=== PATIENT | female | born 1990 | race Caucasian/White ===

== ENCOUNTER 2017-03-06 09:41 | Emergency (ER) | payer OTHER ==
[2017-03-06 09:50] VITALS: BMI 19.8
--- NOTE | 2017-03-06 10:18 | PDOC ---
History of Present Illness - General Chief Complaint: Vaginal Bleeding Stated Complaint: BLEEDING (7 WKS ) Time Seen by Provider: 03/06/17 09:57 History Source: Patient Exam Limitations: No Limitations - History of Present Illness Travel History: No Initial Comments: 03/06/17 10:09 Patient here with complaints of brown spotting/vaginal bleeding started this morning. States noted when she woke up to use the bathroom this morning had some brownish discoloration vaginally . Has some mild back cramping last night but no changes in exercise or activity, no recent trauma. LMP was 01/28 and since then has had an uncomplicated course. Has had no care as her insurance initiates April 04. Dr. Shrestha will be her ADMINISTRATIVE AND PROGRAM SPECIALIST doctor. 3 para 1 , daughter born 2011. Had a miscarriage that initiated in same type of symptoms in 2016. This was a planned . Denies fever, nausea vomiting diarrhea or constipation, no history of vaginal drainage other than the brown discharge this morning, without clots or gelatinous product. Dysuria few days previous with some frequency and small amount Timing/Duration: reports: intermittent Quality: reports: mild Abdominal Pain Onset Location: reports: generalized abdomen Pain Radiation: reports: no radiation Activities at Onset: reports: none Past History - Travel Traveled outside of the country in the last 30 days: No Close contact w/someone who was outside of country & ill: No - Past Medical History Allergies/Adverse Reactions: Allergies Allergy/AdvReac Type Severity Reaction Status Date / Time No Known Drug Allergies Allergy Verified 03/06/17 09:46 Home Medications: Ambulatory Orders Pnv with Ca,No.72/Iron/FA [ Plus Tablet] 1 each PO DAILY #30 tablet 01/18 Anemia: No Asthma: No Cancer: No Cardiac Disorders: No CVA: No COPD: No CHF: No Dementia: No Diabetes: No GI Disorders: No Disorders: No HTN: No Hypercholesterolemia: No Liver Disease: No Seizures: No Thyroid Disease: No - Reproductive History (#): 2 Para: 1 Therapeutic (s) & number: No Spontaneous : 0 - Immunization History Immunization Up to Date: Yes - Psycho/Social/Smoking Cessation Hx Anxiety: No Suicidal Ideation: No Smoking Status: No Smoking History: Never smoked Have you smoked in the past 12 months: No Number of Cigarettes Smoked Daily: 0 Hx Alcohol Use: Yes (RARELY) Drug/Substance Use Hx: No Substance Use Type: None Hx Substance Use Treatment: No Abd/GI Specific PMHX - Complaint Specific PMHX Colitis: No Diverticulitis: No Review of Systems - Review of Systems Able to Perform ROS?: Yes Is the patient limited Indonesian proficient: Yes Constitutional: Yes: Symptoms Reported, See HPI, Malaise. No: Fever HEENTM: Yes: See HPI. No: Symptoms Reported Respiratory: Yes: See HPI. No: Symptoms reported, Cough ABD/GI: Yes: Symptoms Reported, See HPI, Nausea. No: Constipated, Diarrhea, Abdominal cramping : Yes: See HPI, Frequency. No: Symptoms Reported, Flank Pain Musculoskeletal: No: Symptoms Reported Integumentary: Yes: See HPI. No: Symptoms Reported Neurological: Yes: See HPI. No: Symptoms reported, Headache All Other Systems: Reviewed and Negative *Physical Exam - Vital Signs Last Vital Signs Temp Pulse Resp BP Pulse Ox 98.4 F 111 H 18 126/77 100 03/06/17 09:46 03/06/17 09:46 03/06/17 09:46 03/06/17 09:46 03/06/17 09:46 - Physical Exam General Appearance: Yes: Nourished, Appropriately Dressed. No: Apparent Distress HEENT: positive: SIMI, Normal ENT Inspection, TMs Normal, Pharynx Normal Neck: positive: Supple. negative: Tender, Lymphadenopathy (R), Lymphadenopathy (L) Respiratory/Chest: positive: Lungs Clear, Normal Breath Sounds Female Pelvic Exam: positive: normal external exam, cervical os closed, other ( noted blood in vault, but darkish color, no clots no redness tissue noted) Gastrointestinal/Abdominal: positive: Normal Bowel Sounds, Tender (suprapubic tenderness, but no rebound or guarding), Soft. negative: Rebound, Tenderness Musculoskeletal: positive: Normal Inspection. negative: CVA Tenderness Extremity: positive: Normal Capillary Refill, Normal Inspection, Pelvis Stable Integumentary: positive: Normal Color, Dry, Warm, Pale Neurologic: positive: plate washer II-XII NML intact, Fully Oriented, Alert, Normal Mood/ Affect, Normal Response, Motor Strength 5/5 ED Treatment Course - LABORATORY CBC & Chemistry Diagram: 03/06/17 10:50 - RADIOLOGY Radiology Studies Ordered: Category Date Time Status TRANSVAGINAL US PREG [US] Stat Ultrasound 03/06/17 10:08 Ordered Progress Note - Progress Note Progress Note: Vaginal bleed with , will check labs, and ultrasound Medical Decision Making - Medical Decision Making 03/06/17 13:57 Do sound returns with intrauterine of 2 viable fetus at 5-6 weeks per measurement. Beta hCG 39,000 patient given results, will follow-up with RESOURCE ECONOMIST and continue care to return for worsened symptoms, cramping, worsened bleeding *DC/Admit/Observation/Transfer Diagnosis at time of Disposition: Vaginal bleeding in Qualifiers: Trimester: first trimester Qualified Code(s): O46.91 - Antepartum hemorrhage, unspecified, first trimester - Discharge Dispostion Disposition: HOME Condition at time of disposition: Stable Admit: No - Referrals Referrals: Rufino Guardado MD [Primary Care Provider] - Sean Shrestha MD [Staff Physician] - - Patient Instructions Printed Discharge Instructions: DI for Vaginal Bleeding During Additional Instructions: Rest, drink lots of fluids: Teas, water, soups No heavy lifting, strenuous activity until symptoms resolved Call for appointment with ADMINISTRATIVE AND PROGRAM SPECIALIST as care needs start soon as possible No sexual activity until cleared by RESOURCE ECONOMIST Lots of handwashing and good hygiene Tylenol for fever and pain Followup with private physician in one to 2 days Return to emergency department for worsened symptoms, bleeding, cramping's, fevers, dehydration - Post Discharge Activity Work/School Note: Back to Work
[2017-03-06 11:08] LABS: BASOPHIL 0.6 % (0-2.0); EOSINOPHIL 0.9 % (0-4.5); MCH 26.4 pg (25.7-33.7); MCHC 33.1 g/dl (32.0-36.0); MEAN CELL VOLUME 79.7 fl (80-96); MEAN PLT VOLUME 8.4 fl (7.5-11.1); NEUTROPHILS 63.4 % (42.8-82.8); PLATELET COUNT 288 K/MM3 (134-434); RDW 13.6 % (11.6-15.6); WHITE BLOOD COUNT 8.3 K/mm3 (4.0-10.0)
--- NOTE | 2017-03-06 11:10 | PDOC ---
*Physical Exam - Vital Signs Last Vital Signs Temp Pulse Resp BP Pulse Ox 98.4 F 111 H 18 126/77 100 03/06/17 09:46 03/06/17 09:46 03/06/17 09:46 03/06/17 09:46 03/06/17 09:46 ED Treatment Course - LABORATORY CBC & Chemistry Diagram: 03/06/17 10:50 Medical Decision Making - Medical Decision Making 03/06/17 11:09 Patient seen and evaluated with the nurse practitioner. I agree with the overall evaluation, assessment, and management with the following summary of visit: 27-year-old female with LMP 01/28 presents with vaginal bleeding. Threatened AB versus rule out ectopic. CBC, Rh, hCG, ultrasound. *DC/Admit/Observation/Transfer Diagnosis at time of Disposition: Vaginal bleeding in Qualifiers: Trimester: first trimester Qualified Code(s): O46.91 - Antepartum hemorrhage, unspecified, first trimester - Discharge Dispostion Disposition: HOME - Prescriptions Prescriptions: Pnv with Ca,No.72/Iron/FA [ Plus Tablet] 1 each PO DAILY #30 tablet - Referrals Referrals: Rufino Guardado MD [Primary Care Provider] - Sean Shrestha MD [Staff Physician] - - Patient Instructions Printed Discharge Instructions: DI for Vaginal Bleeding During Additional Instructions: Rest, drink lots of fluids: Teas, water, soups No heavy lifting, strenuous activity until symptoms resolved Call for appointment with SUPERVISOR BOARDING as care needs start soon as possible No sexual activity until cleared by RN RESIDENTIAL Lots of handwashing and good hygiene Tylenol for fever and pain Followup with private physician in one to 2 days Return to emergency department for worsened symptoms, bleeding, cramping's, fevers, dehydration - Post Discharge Activity Work/School Note: Back to Work
[2017-03-06 11:20] LABS: URINE APPEARANCE CLEAR; URINE BILIRUBIN NEGATIVE (NEGATIVE); URINE COLOR LTYELLOW; URINE GLUCOSE (UA) NEGATIVE (NEGATIVE); URINE KETONE TRACE (NEGATIVE); URINE LEUK ESTERASE NEGATIVE (NEGATIVE); URINE NITRITE NEGATIVE (NEGATIVE); URINE PROTEIN NEGATIVE (NEGATIVE); URINE UROBILINOGEN NEGATIVE E.U./dl (0.2-1.0)
[2017-03-06 11:25] LABS: URINE BLOOD 2+ (NEGATIVE)
[2017-03-06 11:27] LABS: URINE MUCUS RARE; URINE RBC 1 /hpf (0-3); URINE WBC 3 /hpf (3-5)
[2017-03-06 11:51] LABS: INR 1.12 (0.82-1.09); PROTHROMBIN TIME (PATIENT) 12.4 SEC (9.98-11.88)
[2017-03-06 13:42] VITALS: BP 101/64; PULSE 89; TEMP 97.9
== END 2017-03-06 14:00 | disposition home or self-care (01) ==
LOC: JER 09:41
DX: O26.891 Other specified pregnancy related conditions, first trimester (principal); O46.91 Antepartum hemorrhage, unspecified, first trimester; Z3A.01 Less than 8 weeks gestation of pregnancy
CPT/HCPCS: 36415; 76817-TC; 81003; 81015; 84702; 84703; 85025; 85610; 86850; 86900; 86901; 99283-25

== ENCOUNTER 2017-03-10 14:31 | Emergency (ER) | payer OTHER ==
[2017-03-10 14:38] VITALS: BP 127/78; PULSE 97; TEMP 98.5; BMI 19.8
[2017-03-10] MEDS ORDERED: SODIUM CHLORIDE FOR INHALATION 3 ML VIAL.NEB IH ONE (14:49)
[2017-03-10] MEDS ORDERED: diphenhydrAMINE HCL 25 MG CAPSULE (FP) PO ONE ×2 (14:51→14:59)
[2017-03-10] MEDS ORDERED: ONDANSETRON *ODT* 4 MG TABLET SL ONE (14:58)
[2017-03-10] MEDS ORDERED: ONDANSETRON *ODT* 4 MG TABLET ONE (14:59)
--- NOTE | 2017-03-10 15:04 | PDOC ---
History of Present Illness - General Chief Complaint: Respiratory Stated Complaint: SHORTNESS OF BREATH Time Seen by Provider: 03/10/17 14:40 History Source: Patient Exam Limitations: No Limitations - History of Present Illness Initial Comments: 03/10/17 15:02 27 yr female states she is 6 weeks c/o nasal congestion, mucous in her throat cough and shortness of breath started early this am. Pt denies fever or chills no abd pain pr back pain. no surgical history. no asthma non smoker Severity: reports: mild Past History - Past Medical History Allergies/Adverse Reactions: Allergies Allergy/AdvReac Type Severity Reaction Status Date / Time No Known Drug Allergies Allergy Verified 03/10/17 14:33 Home Medications: Ambulatory Orders Pnv with Ca,No.72/Iron/FA [ Plus Tablet] 1 each PO DAILY #30 tablet 01/18 Diphenhydramine HCl [Benadryl -] 25 mg PO Q6H #28 capsule 03/10/17 Anemia: No Asthma: No Cancer: No Cardiac Disorders: No CVA: No COPD: No CHF: No Dementia: No Diabetes: No GI Disorders: No Disorders: No HTN: No Hypercholesterolemia: No Liver Disease: No Seizures: No Thyroid Disease: No Other medical history: DENIES. - Surgical History Abdominal Surgery: Yes - Reproductive History (#): 2 Para: 1 Therapeutic (s) & number: No Spontaneous : 0 - Immunization History Immunization Up to Date: Yes - Psycho/Social/Smoking Cessation Hx Anxiety: No Suicidal Ideation: No Smoking Status: No Smoking History: Never smoked Have you smoked in the past 12 months: No Number of Cigarettes Smoked Daily: 0 Hx Alcohol Use: No Drug/Substance Use Hx: No Substance Use Type: None Hx Substance Use Treatment: No Respiratory Specific PMHX - Complaint Specific PMHX Angina: No Bronchitis: No Pneumonia: No Pulmonary Embolus: No TB (Tuberculosis): No Review of Systems - Review of Systems Able to Perform ROS?: Yes Is the patient limited Thai proficient: No Constitutional: No: Symptoms Reported HEENTM: Yes: See HPI Respiratory: Yes: See HPI, Cough *Physical Exam - Vital Signs Last Vital Signs Temp Pulse Resp BP Pulse Ox 98.5 F 97 H 18 127/78 100 03/10/17 14:33 03/10/17 14:33 03/10/17 14:33 03/10/17 14:33 03/10/17 14:33 - Physical Exam General Appearance: Yes: Nourished, Appropriately Dressed HEENT: positive: EOMI, SIMI, TMs Normal, Pharynx Normal, Nasal Congestion, Other (post nasal drip ) Neck: positive: Supple. negative: Tender Respiratory/Chest: positive: Lungs Clear, Normal Breath Sounds Cardiovascular: positive: Regular Rhythm, Regular Rate Gastrointestinal/Abdominal: positive: Normal Bowel Sounds, Soft Musculoskeletal: positive: Normal Inspection Extremity: positive: Normal Capillary Refill, Normal Inspection, Normal Range of Motion Integumentary: positive: Normal Color, Dry, Warm Neurologic: positive: Fully Oriented, Alert, Normal Mood/Affect, Normal Response , Motor Strength 5/5 Heart Score/ECG Review - ECG Impressions Normal ECG: Yes Non-specific ST Elevation: No Ischemic Changes: No Bradycardia: No (signed by NSR no ectopy) ED Treatment Course - Medications Given in the ED: ED Medications Discontinued Medications Generic Name Dose Route Start Last Admin Trade Name Merlinq PRN Reason Stop Dose Admin Sodium Chloride 3 ml 03/10/17 14:49 03/10/17 14:55 Normal Saline For Inhalation - IH 03/10/17 14:50 3 ml ONCE ONE Administration Medical Decision Making - Medical Decision Making 03/10/17 15:04 cc: nasal congestion, cough post nasal drip short of breath will give saline neb, zofran and benadryl EKG 03/10/17 15:[address] elevation no abnormality signed by 03/10/17 16:12 pt feels better after meds lungs CTA pulse ox 100% on RA HR 90 pt given reassurance and is to bed discharged home strict follow up with allergy and ENT and AVIONICS ELECTRONICS TECHNICIAN this week pt understands to return if any worsening symptoms all questions asked and answered *DC/Admit/Observation/Transfer Diagnosis at time of Disposition: Seasonal allergies Qualifiers: Allergic rhinitis trigger: pollen Qualified Code(s): J30.1 - Allergic rhinitis due to pollen - Discharge Dispostion Disposition: HOME Condition at time of disposition: Good - Prescriptions Prescriptions: Diphenhydramine HCl [Benadryl -] 25 mg PO Q6H #28 capsule - Referrals Referrals: Rufino Guardado MD [Primary Care Provider] - Manuel Ramirez MD [Staff Physician] - - Patient Instructions Additional Instructions: drink pleanty of water at least 3 liters a day eat frequent meals take benadryl as needed for allergy symptoms, mucous in your throat follow with ENT allergy this week call tomorrow to make appointment Return to ER for any worsening symptoms
--- NOTE | 2017-03-11 13:39 | EKG ---
Test Reason : Blood Pressure : / mmHG Vent. Rate : 099 BPM Atrial Rate : 099 BPM P-R Int : 158 ms QRS Dur : 086 ms QT Int : 346 ms P-R-T Axes : 074 088 064 degrees QTc Int : 444 ms NORMAL SINUS RHYTHM NORMAL ECG WHEN COMPARED WITH ECG OF 23-SEP-2013 20:00, NO SIGNIFICANT CHANGE WAS FOUND Confirmed by EUGENIA DORSEY MD ([id number]) on 03/11/2017 1:38:53 PM Referred By: Confirmed By:EUGENIA DORSEY MD
== END 2017-03-10 16:14 | disposition home or self-care (01) ==
LOC: JERFT 14:31 → JER 14:31 → JERFT 16:14
PROC: 3E0F7GC Introduction of Other Therapeutic Substance into Respiratory Tract, Via Natural or Artificial Opening (ICD-10-PCS; principal; 2017-03-10)
DX: O26.891 Other specified pregnancy related conditions, first trimester (principal); J30.1 Allergic rhinitis due to pollen; Z3A.01 Less than 8 weeks gestation of pregnancy
CPT/HCPCS: 93005; 93010; 94640; 99281-25

== ENCOUNTER 2017-10-17 11:55 | Inpatient (IN) | payer OTHER ==
[~2017-10-17 11:55] MED LIST: CEFAZOLIN 1 GM PUSH 1 GM/10 ML DISP.SYRIN IVPUSH SCH; ELECTROLYTE-148 SOLN 1,000 ML IV ONE
[2017-10-17] MEDS ORDERED: ELECTROLYTE-148 SOLN 1,000 ML IV SCH (12:55)
[2017-10-17] MEDS ORDERED: TUBERCULIN PPD 5 TU/0.1ML SYRINGE (IN PATIENT USE ONLY) ID ONE (13:00)
[2017-10-17] MEDS ORDERED: CITRIC ACID/SODIUM CITRATE 30 ML UNIT-DOSE CUP PO ONE (13:00)
[2017-10-17 13:03] VITALS: BMI 27.1
[2017-10-17] MEDS ORDERED: OXYTOCIN 20 UNITS in 0.9% NS 20 UNIT/1,000 ML INFUS.BAG IV ONE ×2 (14:25→16:33)
[2017-10-17] MEDS ORDERED: morphine SULFATE/Preservative Free 0.5 MG/ML (1cc Syringe) ONE (14:27)
[2017-10-17] MEDS ORDERED: ceFAZolin SODIUM 1 GM VIAL ONE (14:35)
[2017-10-17] MEDS ORDERED: SODIUM CHLORIDE 0.9% P/F 10 ML VIAL IJ ONE (14:35)
[2017-10-17] MEDS ORDERED: KETOROLAC TROMETHAMINE 30 MG/1 ML VIAL ONE (14:52)
[2017-10-17] MEDS ORDERED: ePHEDrine SULFATE 50 MG/1 ML AMPULE ONE (14:53)
[2017-10-17] MEDS ORDERED: METHYLERGONOVINE MALEATE 0.2 MG/1 ML AMP IM PRN (15:34)
[2017-10-17] MEDS ORDERED: WITCH HAZEL 50% (TUCKS) 40 PAD/JAR PAD TP PRN (15:34)
[2017-10-17] MEDS ORDERED: diphenhydrAMINE HCL 25 MG CAPSULE (FP) PO PRN (15:34)
[2017-10-17] MEDS ORDERED: BENZOCAINE 28 GM HEMORRHOIDAL OINTMENT PR PRN (15:34)
[2017-10-17] MEDS ORDERED: BENZOCAINE 20% 57 GM BOTTLE TP PRN (15:34)
[2017-10-17] MEDS ORDERED: IBUPROFEN 600 MG TABLET (FP) PO PRN (15:34)
[2017-10-17] MEDS ORDERED: oxyCODONE HCL 5 MG TABLET PO PRN (15:34)
--- NOTE | 2017-10-17 15:43 | HP ---
Past Medical History - Primary Care Physician PCP:: Sean Shrestha - Admission Chief Complaint: 38 weeks, previous c/s , twins for repeat c/s History of Present Illness: 27 yo f g 2 p1001 38 weeks, with previous c/s and twins gestation for repeat c/s , rba discussed , fhr cat 1 tracing for both twins, irregular contraction History Source: Patient Limitations to Obtaining History: No Limitations - Past Medical History ...: 3 ...Para: 1 ...Term: 1 ...: 0 ...Spon : 1 ...Induced : 0 ...Multiple Gestation: 0 ...LMP: 01/28/17 ... Weeks Gestation by Dates: 37.3 ...EDC by Dates: 11/04/17 ...EDC by Sono: 10/31/17 Infectious Disease: Yes: STD's (previous hx of chlamydia, txed) - Past Surgical History Hx Myomectomy: No Hx Transabdominal Cerclage: No - Smoking History Smoking history: Never smoked Have you smoked in the past 12 months: No Aproximately how many cigarettes per day: 0 - Alcohol/Substance Use Hx Alcohol Use: No - Social History History of Recent Travel: No Home Medications - Allergies Allergies/Adverse Reactions: Allergies Allergy/AdvReac Type Severity Reaction Status Date / Time No Known Drug Allergies Allergy Verified 10/17/17 12:20 - Home Medications Home Medications: Ambulatory Orders Ferrous Sulfate 325 mg PO TID 10/10/17 Pnv with Ca,No.72/Iron/FA [ Plus Tablet] 1 each PO TID 10/17/17 Review of Systems - Review of Systems Constitutional: reports: No Symptoms Eyes: reports: No Symptoms HENT: reports: No Symptoms Neck: reports: No Symptoms Cardiovascular: reports: No Symptoms Respiratory: reports: No Symptoms Gastrointestinal: reports: No Symptoms Genitourinary: reports: No Symptoms Breasts: reports: No Symptoms Reported Musculoskeletal: reports: No Symptoms Integumentary: reports: No Symptoms Endocrine: reports: No Symptoms Hematology/Lymphatic: reports: No Symptoms Psychiatric: reports: No Symptoms Physical Exam - Maternity Vital Signs: Vital Signs Temperature 97.9 F 10/17/17 14:37 Pulse Rate 72 10/17/17 14:37 Respiratory Rate 20 10/17/17 14:37 Blood Pressure 131/80 10/17/17 14:37 O2 Sat by Pulse Oximetry (%) Constitutional: Yes: Well Nourished, No Distress, Calm Eyes: Yes: WNL, Conjunctiva Clear, EOM Intact HENT: Yes: WNL, Atraumatic, Normocephalic Neck: Yes: WNL, Supple, Trachea Midline Cardiovascular: Yes: WNL, Regular Rate and Rhythm Breast(s): Yes: WNL - Abdominal Exam/OB Fundal Height: 44 Number of Fetuses: Multiple Presentation: Vertex, Breech Contractions: Yes Regularity: Irregular Intensity: Unaware Monitor Mode: External Heart Rate Location: LUQ, RLQ Category: I Accelerations: Uniform Decelerations: None - Vaginal Exam/OB Vaginal Bleediing: No Dilatation (cm): 2 cm Effacement (%): 50 Amniotic Membrane Status: Bulging Presentation: Manuel Breech Station: -3 - Physical Exam Musculoskeletal: Yes: WNL Extremities: Yes: WNL Edema: Yes Edema: LLE: 1+, RLE: 1+ Deep Tendon Reflex Grade: Normal +2 Psychiatric: Yes: WNL Hemorrhage Risk Assessment - Risk Factors Medium Risk Factors: Yes: Prior , uterine surgery,or multiple laparotomies Risk Score: 1 Risk Level: Medium Risk Problem List - Problems (1) with 38 completed weeks gestation Code(s): Z3A.38 - 38 WEEKS GESTATION OF (2) Twin gestation in second trimester Code(s): O30.002 - TWIN PREG, UNSP NUM PLCNTA & AMNIO SACS, SECOND TRIMESTER Qualifiers: Multiple gestation type: dichorionic and diamniotic Qualified Code(s): O30.042 - Twin , dichorionic/diamniotic, second trimester (3) Twin gestation with second Code(s): O30.009 - TWIN , UNSP NUM PLCNTA & AMNIO SACS, UNSP TRIMESTER ; O09.40 - SUPERVISION OF W GRAND MULTIPARITY, UNSP TRIMESTER (4) Previous section complicating Code(s): O34.219 - MATERNAL CARE FOR UNSP TYPE SCAR FROM PREVIOUS DEL Assessment/Plan admit for c/s , requesting , btl, rba discussed
[2017-10-17] MEDS ORDERED: DEXTROSE 5%-LACTATED RINGERS 1,000 ML IV SCH (15:45)
[2017-10-17] MEDS ORDERED: OXYTOCIN 20 UNITS in 0.9% NS 20 UNIT/1,000 ML INFUS.BAG IV SCH (15:45)
[2017-10-17] MEDS: IBUPROFEN 800 MG/8 ML IJ IVPB PRN (19:40)
[2017-10-18] MEDS: CEFAZOLIN 1 GM PUSH 1 GM/10 ML DISP.SYRIN IVPUSH SCH ×3 (00:19→16:20)
[2017-10-18] MEDS: IBUPROFEN 800 MG/8 ML IJ IVPB PRN (05:12)
[2017-10-18 08:42] LABS: BASO % 0.4 % (0-2.0); EOS % 0.4 % (0-4.5); MCH 26.8 pg (25.7-33.7); MCHC 31.9 g/dl (32.0-36.0); MEAN CELL VOLUME 84.1 fl (80-96); NEUT % 75.2 % (42.8-82.8); PLATELET COUNT 167 K/MM3 (134-434); RDW 14.9 % (11.6-15.6); WHITE BLOOD COUNT 11.5 K/mm3 (4.0-10.0)
[2017-10-18] MEDS: ENOXAPARIN NA (PORCINE) 40 MG/0.4 ML DISP.SYRIN SQ SCH (09:53)
[2017-10-18] MEDS: IBUPROFEN 600 MG TABLET (FP) PO PRN ×3 (11:15→22:11)
[2017-10-18] MEDS: oxyCODONE HCL 5 MG TABLET PO PRN ×3 (11:16→22:11)
[2017-10-18] MEDS: SIMETHICONE 80 MG TAB.CHEW (FP) PO PRN ×3 (11:17→22:12)
--- NOTE | 2017-10-18 11:19 | PN ---
Progress Note (short form) - Note Progress Note: Anesthesia postop note 27y/o F s/p spinal anesthesia /duramorph for section POD#1, vss, aaox3, pain well controlled, no complaints, sensorymotor intact distally No anesthesia complications.
--- NOTE | 2017-10-18 14:35 | PN ---
Post Progress Note - Subjective Subjective: Pt w/o complaints. She feels well. Post Day: 1 Type of Delivery: Repeat C/S Vital Signs: Vital Signs Temperature 98.6 F 10/18/17 14:00 Pulse Rate 95 H 10/18/17 14:00 Respiratory Rate 20 10/18/17 14:00 Blood Pressure 122/72 10/18/17 14:00 O2 Sat by Pulse Oximetry (%) 99 10/17/17 17:00 Breast Exam: Yes: Soft Uterus: Yes: Fundus Firm, Fundus below umbilicus, Non-tender Incision: Yes: Dressing dry and intact Abdomen/GI: Yes: Abdomen soft Lochia: Yes: Rubra Lochia, amount: Small Extremities: Yes: Calves non-tender Perineum: Yes: Intact Activity: Ambulating - Labs Labs: CBC WBC 11.5 K/mm3 (4.0-10.0) H 10/18/17 08:10 RBC 3.33 M/mm3 (3.60-5.2) L D 10/18/17 08:10 Hgb 8.9 GM/dL (10.7-15.3) L D 10/18/17 08:10 Hct 28.0 % (32.4-45.2) L D 10/18/17 08:10 MCV 84.1 fl (80-96) 10/18/17 08:10 MCH 26.8 pg (25.7-33.7) 10/18/17 08:10 MCHC 31.9 g/dl (32.0-36.0) L 10/18/17 08:10 RDW 14.9 % (11.6-15.6) 10/18/17 08:10 Plt Count 167 K/MM3 (134-434) 10/18/17 08:10 MPV 9.0 fl (7.5-11.1) 10/18/17 08:10 Neutrophils % 75.2 % (42.8-82.8) 10/18/17 08:10 Lymphocytes % 18.3 % (8-40) D 10/18/17 08:10 Monocytes % 5.7 % (3.8-10.2) 10/18/17 08:10 Eosinophils % 0.4 % (0-4.5) 10/18/17 08:10 Basophils % 0.4 % (0-2.0) 10/18/17 08:10 Assessment/Plan 27yo POD# 1 s/p repeat LT C/S, doing well, stable, afebrile. Pt is asymptomatic for s/sx's of anemia Ambulation was encouraged. Continue routine care.
[2017-10-18] MEDS ORDERED: BISACODYL 10 MG SUPP.RECT PR PRN (15:34)
--- NOTE | 2017-10-18 19:02 | OP ---
DATE OF OPERATION: 10/17/2017 PREOPERATIVE DIAGNOSIS: 38 weeks twin gestation, previous section, request of repeat section and bilateral tubal ligation. SURGEON: Phu Shrestha M.D. PROCEDURE: Repeat low segment transverse section and bilateral tubal ligation. DATA REDUCTION TECHNICIAN: Mark Cole M.D. ANESTHESIA: Spinal. ANESTHESIOLOGIST: Pj Chavis M.D. ESTIMATED BLOOD LOSS: 500 mL. OPERATION: Patient was taken to operating room with adequate spinal anesthesia. Abdomen and perineum were prepped and draped. Pfannenstiel abdominal skin incision was made. Abdominal wall was cut layer by layer until the peritoneum was exposed and incised. Upon entering the abdominal cavity, a low transverse incision was made, and incision extended laterally. Amniotic sac was entered, clear fluid. Twin A was ramona breech, delivered without any difficulty. Cord was clamped, and cord blood was obtained. Twin B membrane was ruptured, was in the vertex presentation, was delivered without any difficulty. Placenta was delivered manually. Uterine cavity was cleaned of all remaining tissue. Uterine incision was closed in 2 layers, the 1st layer with 0 Biosyn continuous suture, the 2nd layer with 0 Biosyn imbricating the 1st layer. Bladder flap was closed with 0 Biosyn continuous suture. Both tubes and ovaries were checked and were normal. The right tube was grasped with Richard clamp. Right tube was doubly tied with 2-0 plain. Portion of tube was removed, and was cauterized. The same procedure repeated for opposite tube. No active bleeding was seen. All the lap, sponge, and instrument counts were correct. Peritoneum was closed with 0 Biosyn continuous suture. Muscles were brought together interrupted suture with 0 Biosyn. Fascia was closed with 0 Biosyn continuous sutures. Subcutaneous fat interrupted sutures 0 Biosyn, and the skin was closed with 3-0 Vicryl subcuticular continuous suture. The patient tolerated the procedure well and left the OR in good condition. PHU SHRESTHA M.D. [id number]
[2017-10-18] MEDS: SENNOSIDES/DOCUSATE COMBO (SENNA PLUS) TABLET (UD) PO PRN (20:59)
[2017-10-19] MEDS: SIMETHICONE 80 MG TAB.CHEW (FP) PO PRN ×4 (04:35→22:15)
[2017-10-19] MEDS: IBUPROFEN 600 MG TABLET (FP) PO PRN ×3 (04:35→22:16)
[2017-10-19] MEDS: oxyCODONE HCL 5 MG TABLET PO PRN ×4 (04:36→22:15)
[2017-10-19] MEDS: ENOXAPARIN NA (PORCINE) 40 MG/0.4 ML DISP.SYRIN SQ SCH (09:28)
[2017-10-19] MEDS: ACETAMINOPHEN 325 MG TABLET (FP) PO PRN (09:29)
--- NOTE | 2017-10-19 12:44 | PN ---
Post Progress Note - Subjective Subjective: Some incisional pain, no other complaints Post Day: 2 Type of Delivery: Repeat C/S Vital Signs: Vital Signs Temperature 99 F 10/19/17 10:00 Pulse Rate 84 10/19/17 10:00 Respiratory Rate 20 10/19/17 10:00 Blood Pressure 135/79 10/19/17 10:00 O2 Sat by Pulse Oximetry (%) 99 10/17/17 17:00 Breast Exam: Yes: Soft Uterus: Yes: Fundus Firm, Fundus @ umbilicus Incision: Yes: Sutures intact Abdomen/GI: Yes: Abdomen soft, Passing flatus, Tolerating PO Lochia: Yes: Rubra Lochia, amount: Small Extremities: Yes: Calves non-tender Perineum: Yes: Intact Activity: Ambulating - Labs Labs: CBC WBC 11.5 K/mm3 (4.0-10.0) H 10/18/17 08:10 RBC 3.33 M/mm3 (3.60-5.2) L D 10/18/17 08:10 Hgb 8.9 GM/dL (10.7-15.3) L D 10/18/17 08:10 Hct 28.0 % (32.4-45.2) L D 10/18/17 08:10 MCV 84.1 fl (80-96) 10/18/17 08:10 MCH 26.8 pg (25.7-33.7) 10/18/17 08:10 MCHC 31.9 g/dl (32.0-36.0) L 10/18/17 08:10 RDW 14.9 % (11.6-15.6) 10/18/17 08:10 Plt Count 167 K/MM3 (134-434) 10/18/17 08:10 MPV 9.0 fl (7.5-11.1) 10/18/17 08:10 Neutrophils % 75.2 % (42.8-82.8) 10/18/17 08:10 Lymphocytes % 18.3 % (8-40) D 10/18/17 08:10 Monocytes % 5.7 % (3.8-10.2) 10/18/17 08:10 Eosinophils % 0.4 % (0-4.5) 10/18/17 08:10 Basophils % 0.4 % (0-2.0) 10/18/17 08:10 Assessment/Plan 27yo POD# 2 s/p repeat LT C/S, doing well, stable, afebrile. Pt is asymptomatic for s/sx's of anemia Ambulation was encouraged. Continue routine care.
[2017-10-19] MEDS: SENNOSIDES/DOCUSATE COMBO (SENNA PLUS) TABLET (UD) PO PRN (22:15)
[2017-10-20] MEDS: SIMETHICONE 80 MG TAB.CHEW (FP) PO PRN ×3 (05:34→21:03)
[2017-10-20] MEDS: IBUPROFEN 600 MG TABLET (FP) PO PRN ×3 (05:34→21:04)
[2017-10-20] MEDS: oxyCODONE HCL 5 MG TABLET PO PRN ×2 (05:34→12:37)
[2017-10-20 08:00] LABS: MCH 27.4 pg (25.7-33.7); MCHC 32.6 g/dl (32.0-36.0); MEAN CELL VOLUME 84.2 fl (80-96); PLATELET COUNT 228 K/MM3 (134-434); RDW 14.9 % (11.6-15.6)
[2017-10-20] MEDS: ENOXAPARIN NA (PORCINE) 40 MG/0.4 ML DISP.SYRIN SQ SCH (09:28)
[2017-10-20 10:57] LABS: MYELOCYTE 1 % (0-2); NUCLEATED RED BLOOD CELL 1 % (0-0); PLATELET ESTIMATE ADEQUATE; TOTAL CELLS COUNTED 100
[2017-10-20] MEDS: ACETAMINOPHEN 325 MG TABLET (FP) PO PRN (21:03)
[2017-10-20] MEDS: SENNOSIDES/DOCUSATE COMBO (SENNA PLUS) TABLET (UD) PO PRN (21:05)
--- NOTE | 2017-10-21 07:14 | DS ---
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 Vital Signs: Vital Signs Temperature 99.0 F 10/20/17 22:00 Pulse Rate 72 10/20/17 22:00 Respiratory Rate 20 10/20/17 22:00 Blood Pressure 124/76 10/20/17 22:00 O2 Sat by Pulse Oximetry (%) 99 10/17/17 17:00 Labs: CBC, BMP 10/20/17 06:00 Delivery - Delivery Type of Anesthesia: Spinal Episiotomy/Laceration: None EBL (cc): 500 Delivery, Single - Feeding Plan Initial Plan: Exclusive throughout hospitalization Delivery, Multiple Births - Stages of Labor Delivery Baby "A" Date: 10/17/17 Time: 14:57 Placenta/Membranes "A" Date: 10/17/17 Time: 14:59 Delivery Baby "B" Date: 10/17/17 Time: 14:58 Placenta/Membranes "B" Date: 10/17/17 Time: 14:59 - Condition of Multiple Births [place] 1 (A) Electrician Substation Supervisor/Ophthalmic Medical Technologist Present: Yes Electrician Substation Supervisor: Marla Bartlett Infant Gender: Female Weight: 5 lb 2 oz Total Hours ROM (HRS/MINS): 0/3 2 (B) Electrician Substation Supervisor/Ophthalmic Medical Technologist Present: Yes Electrician Substation Supervisor: Marla Bartlett Infant Gender: Male Weight: 6 lb Position: Right, OT Total Hours ROM (HRS/MINS): 0/1 - [place] 1 (A) 1 Minute Score: 9 2 (B) 5 Minutes Score: 9 2 (B) Score: 9 5 Minutes Score: 9 Discharge Summary Reason For Visit: C SECTION Current Active Problems with 38 completed weeks gestation (Acute) Previous section complicating (Acute) Twin gestation in second trimester (Acute) Twin gestation with second (Acute) Procedures: Principal: delivery Hospital Course: Patient s/p CD for live twins POD #1 noted mild asymptomatic anemia Patient remained afebrile, ambulating, voiding, passing gas, and pain well controlled stable for discharge home POD #4 Condition: Good - Instructions Diet, Activity, Other Instructions: Physical activity Resume your normal everyday activity as tolerated no heavy lifting or exercise until seen by your surgeon. You may walk unlimited brando of and climb stairs. You may resume driving the car when you feel safe and comfortable behind the wheel. No sexual activity as instructed. Wound care If you have a bandage, leave it on, and keep dry for 48-72 hours. After that time discard the outer bandage. If they are tapes on the skin under the out of bandage leave them in place. They will peel off in the next 7 to 10 days. Do Not Peel them off. You may shower the day after surgery. If there are tapes present on the skin, you may shower over them. Diet There are no dietary restrictions. Eat healthy, high-fiber foods. Drink 6 to 8 glasses of liquid each day. This will assist in keeping your bowels are regular. Pain management You may take Tylenol or acetaminophen or Ibuprofen (for example, Motrin, Advil etc.) from my pain prescription medication is ordered should be taken as prescribed for moderate to severe pain. Call MD for any of the following: Severe pain not relieved by medication Fever of 101 or higher Excessive bleeding or drainage on dressing Inability to urinate [facility] Reference #: [id number] Disposition: HOME - Home Medications Comprehensive Discharge Medication List: Ambulatory Orders Ferrous Sulfate 325 mg PO TID 10/10/17 Pnv with Ca,No.72/Iron/FA [ Plus Tablet] 1 each PO TID 10/17/17 Oxycodone HCl/Acetaminophen [Percocet 5-325 mg Tablet -] 1 - 2 tab PO Q6H #10 tab MDD 4 10/21/17
--- NOTE | 2017-10-21 07:15 | PN ---
Post Progress Note - Subjective Subjective: Patient without acute complaints. Reports tolerating oral intake without nausea or vomiting. Ambulating without dizziness. Denies fevers or chills. Pain well controlled with oral pain medication. without difficulty. Passing flatus. Post Day: 4 Type of Delivery: Repeat C/S Vital Signs: Vital Signs Temperature 99.0 F 10/20/17 22:00 Pulse Rate 72 10/20/17 22:00 Respiratory Rate 20 10/20/17 22:00 Blood Pressure 124/76 10/20/17 22:00 O2 Sat by Pulse Oximetry (%) 99 10/17/17 17:00 Breast Exam: Yes: Engorged Uterus: Yes: Fundus Firm, Fundus below umbilicus Incision: Yes: Sutures intact. No: Redness, Oozing Abdomen/GI: Yes: Abdomen soft, Tender (mild incisional), Passing flatus, Tolerating PO. No: Abdominal Distention Lochia: Yes: Serosa Lochia, amount: Small Extremities: Yes: Calves non-tender, Edema (trace ) Activity: Ambulating - Labs Labs: CBC WBC 11.0 K/mm3 (4.0-10.0) H 10/20/17 06:00 RBC 2.96 M/mm3 (3.60-5.2) L 10/20/17 06:00 Hgb 8.1 GM/dL (10.7-15.3) L 10/20/17 06:00 Hct 24.9 % (32.4-45.2) L 10/20/17 06:00 MCV 84.2 fl (80-96) 10/20/17 06:00 MCH 27.4 pg (25.7-33.7) 10/20/17 06:00 MCHC 32.6 g/dl (32.0-36.0) 10/20/17 06:00 RDW 14.9 % (11.6-15.6) 10/20/17 06:00 Plt Count 228 K/MM3 (134-434) D 10/20/17 06:00 MPV 8.0 fl (7.5-11.1) D 10/20/17 06:00 Total Counted 100 10/20/17 06:00 Neutrophils % No Result Required. 10/20/17 06:00 Neutrophils % (Manual) 64.0 % (42.8-82.8) 10/20/17 06:00 Lymphocytes % No Result Required. 10/20/17 06:00 Lymphocytes % (Manual) 27.0 % (8-40) 10/20/17 06:00 Monocytes % 5.7 % (3.8-10.2) 10/18/17 08:10 Monocytes % (Manual) 6 % (3.8-10.2) 10/20/17 06:00 Eosinophils % 0.4 % (0-4.5) 10/18/17 08:10 Eosinophils % (Manual) 2.0 % (0-4.5) D 10/20/17 06:00 Basophils % 0.4 % (0-2.0) 10/18/17 08:10 Myelocytes % (Man) 1 % (0-2) 10/20/17 06:00 Nucleated RBC % 1 % (0-0) H 10/20/17 06:00 Platelet Estimate Adequate 10/20/17 06:00 Assessment/Plan 27 yo POD # 4 s/p CD afebrile, vital signs stable, doing well 1. Patient stable for discharge home today. 2. Patient encouraged to contact MD for: - Severe pain not controlled by oral pain medication - Fevers or chills - Nausea or vomiting, intolerance of oral intake - Incision redness, tenderness or discharge 3. Patient to follow up in office in 1-2 weeks for incision check, 4-6 weeks for visit
[2017-10-21] MEDS: ACETAMINOPHEN 325 MG TABLET (FP) PO PRN (08:58)
[2017-10-21] MEDS: SIMETHICONE 80 MG TAB.CHEW (FP) PO PRN (08:58)
[2017-10-21] MEDS: IBUPROFEN 600 MG TABLET (FP) PO PRN (08:59)
[2017-10-21] MEDS: ENOXAPARIN NA (PORCINE) 40 MG/0.4 ML DISP.SYRIN SQ SCH (09:00)
[2017-10-21 09:32] VITALS: BP 132/76; PULSE 77; TEMP 98.4
--- NOTE | 2017-10-22 17:45 | PATH ---
Surgical Pathology Report Patient Name: MAURICE FLYNN [facility]. Rec. 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 Specimen(s) Received A: PLACENTA B: PORTION LEFT FALLOPIAN C: PORTION RIGHT FALLOPIAN TUBE Clinical History , 08/16 Final Diagnosis A. PLACENTA, SECTION: TWIN PLACENTAS COMPRISED OF TWO SEPARATE DISCS. 325 g THIRD TRIMESTER PLACENTA (A) WITH TRIVASCULAR UMBILICAL CORD AND UNREMARKABLE PLACENTAL MEMBRANES. 340 g THIRD TRIMESTER PLACENTA (B) WITH TRIVASCULAR UMBILICAL CORD AND UNREMARKABLE PLACENTAL MEMBRANES. B. FALLOPIAN TUBE, LEFT, PORTION, PARTIAL EXCISION: FULL LUMINAL PORTION OF UNREMARKABLE FALLOPIAN TUBE. C. FALLOPIAN TUBE, RIGHT, PORTION, PARTIAL EXCISION: FULL LUMINAL PORTION OF UNREMARKABLE FALLOPIAN TUBE. Electronically Signed Joseline Pitts M.D. Gross Description A. Received in formalin labeled "placenta," are twin placentas comprised of 2 separate discs. There is one clamp marking the umbilical cord of placenta "A" and two clamps marking the umbilical cord of placenta "B", per the surgeon. Placenta "A" is 325 g and 15.5 x 12.0 x 2.5 cm. The attached membranes are candelario, translucent with focal opacities and insert marginally. The umbilical cord measures 28 cm in length and averages 0.8 cm in diameter. The cord inserts eccentrically, 2.5 cm to the nearest margin. No true knots or strictures are identified. Cut surface of the umbilical cord reveals 3 vessels. The surface is dent blue with minimal fibrin deposition and appropriate caliber vessels. The maternal surface is red-brown with focal defects. Sectioning reveals a 1.2 cm greatest dimension intraparenchymal lesion. The remaining placental parenchyma is red-brown and spongy. Placenta "B" is 340 g and 15.5 x 12.0 x 2.0 cm. The attached membranes are candelario, translucent with focal opacities and insert marginally. The umbilical cord measures 35 cm in length and averages 1 cm in diameter. The cord inserts at the margin. No true knots or strictures are identified. Cut surface of the umbilical cord reveals 3 vessels. The surface is dent blue with minimal fibrin deposition and appropriate caliber vessels. The maternal surface is red-brown with a focal defect. Sectioning reveals red-brown, spongy parenchyma. No lesions are identified. Desk Operator sections are submitted in 7 cassettes as follows: 1-placenta "A" membrane roll and umbilical cord; 2-placenta "A" lesion; 3-4-full thickness sections of placenta "A"; 5-placenta "B" membrane roll and umbilical cord; 6-7-full thickness sections of placenta "B". B. Received in formalin labeled "portion of left fallopian tube," is a 0.9 cm in length portion of fallopian tube. No fimbria are present. The outer surface is acndelario-dent and smooth. Sectioning reveals an unremarkable lumen. Desk Operator sections are submitted in one cassette. C. Received in formalin labeled "portion of right fallopian tube," is a 1.2 cm in length portion of fallopian tube. No fimbria are present. The outer surface is candelario-dent and smooth. Sectioning reveals an unremarkable lumen. Desk Operator sections are submitted in one cassette. 10/21/2017 [facility]10/[facility]/2017
== END 2017-10-21 14:00 | disposition home or self-care (01) | DRG 540 ==
LOC: JLDR 11:55 → J3W 17:03
PROVIDERS: ADMIT Obstetrics & Gynecology; ATTEND Obstetrics & Gynecology
PROC: 10D00Z1 Extraction of Products of Conception, Low, Open Approach (ICD-10-PCS; principal; 2017-10-17)
PROC: 0U570ZZ Destruction of Bilateral Fallopian Tubes, Open Approach (ICD-10-PCS; 2017-10-17)
DX: O30.043 Twin pregnancy, dichorionic/diamniotic, third trimester (principal); O34.219 Maternal care for unspecified type scar from previous cesarean delivery; Z3A.38 38 weeks gestation of pregnancy; Z37.2 Twins, both liveborn; Z30.2 Encounter for sterilization; O90.81 Anemia of the puerperium
CPT/HCPCS: 36415; 71020-TC; 85025; 86850; 86900; 86901; 88302-TC; 88307-TC

== ENCOUNTER 2018-11-10 20:27 | Emergency (ER) | payer OTHER ==
[2018-11-10 20:34] VITALS: BP 141/94; PULSE 122; TEMP 100.5; BMI 20.7
--- NOTE | 2018-11-10 20:34 | PDOC ---
Rapid Medical Evaluation Time Seen by Provider: 11/10/18 20:30 Medical Evaluation: Allergies Allergy/AdvReac Type Severity Reaction Status Date / Time No Known Drug Allergies Allergy Verified 10/17/17 12:20 11/10/18 20:31 I have done a brief in-person assessment of this patient. The patient presents with a chief complaint of pain to left lower back x 1 week. Seen at Urgent Care sent to ed for further evaluation for kidney infection. Took tylenol at Urgent Care before coming here Pertinent physical exam findings NAD even and unlabored breathing + left cva tenderness I have ordered the following: labs, The patient will proceed to the Ed for further evaluation. Dx: left flank pain Discharge Disposition - Referrals Referrals: Rufino Guardado MD [Primary Care Provider] - - Patient Instructions - Post Discharge Activity
[2018-11-10 20:57] LABS: BASO % 0.5 % (0-2.0); EOS % 0.6 % (0-4.5); HEMATOCRIT 33.5 % (32.4-45.2); HEMOGLOBIN 11.2 GM/dL (10.7-15.3); LYMPH % 21.4 % (8-40); MCH 26.3 pg (25.7-33.7); MCHC 33.6 g/dl (32.0-36.0); MEAN CELL VOLUME 78.2 fl (80-96); MEAN PLT VOLUME 7.7 fl (7.5-11.1); MONO % 7.3 % (3.8-10.2); NEUT % 70.2 % (42.8-82.8); PLATELET COUNT 365 K/MM3 (134-434); RBC 4.28 M/mm3 (3.60-5.2); RDW 14.2 % (11.6-15.6); WHITE BLOOD COUNT 10.9 K/mm3 (4.0-10.0)
[2018-11-10 21:18] LABS: URINE APPEARANCE CLEAR; URINE BILIRUBIN NEGATIVE (<2.0 mg/dL); URINE COLOR COLORLESS; URINE GLUCOSE (UA) NEGATIVE (NEGATIVE); URINE KETONE NEGATIVE (NEGATIVE); URINE LEUK ESTERASE NEGATIVE (NEGATIVE); URINE NITRITE NEGATIVE (NEGATIVE); URINE PROTEIN NEGATIVE (NEGATIVE); URINE UROBILINOGEN NEGATIVE mg/dL (0.2-1.0)
[2018-11-10 21:19] LABS: HCG,QUALITATIVE URINE Negative
[2018-11-10 21:25] LABS: INR 1.07 (0.83-1.09); PROTHROMBIN TIME (PATIENT) 12.6 SEC (9.7-13.0)
--- NOTE | 2018-11-10 21:25 | PDOC ---
History of Present Illness <Carolyn Serrano - Last Filed: 11/10/18 23:28> - History of Present Illness Initial Comments: 11/10/18 21:21 28 yo F with h/o , hernia repair, who p/w left lower abdominal pain, and left flank pain. Patient endorses 1 week of crampy worsening left abdominal and flank pain, at rest, worse with touch. Denies h/o similar presentation. Also endorses 2 days of dysruia. LMP 11-05-18. States that she can visualize blood in toilet, during urination, but unsure if it is menstrual vs. hematuria. + non productvie cough x 1 month. treated for PNA 08/2018. Nml bowel habits, and appetite. Denies abdominal trauma. Arriving from [facility] urgent care for pyelonephritis evaluation, with negative flu, and WBC 10.9. UA neg. Patient denies [place], palpitations, N/V, F,C, CP, SOB, cough, BPR, diarrhea, vaginal discharge, pelvic pain, lightheadedness, weakness, sensory changes. PMHx: as noted above ROS: as noted SHx: Denies Etoh, IVDA, tobacco use Allergies: NKDA <Tariq Bender - Last Filed: 11/10/18 23:53> - General Chief Complaint: Pain, Acute Stated Complaint: SIDE PAIN Time Seen by Provider: 11/10/18 20:30 Past History <Carolyn Serrano - Last Filed: 11/10/18 23:28> - Past Medical History Anemia: No Asthma: No Cancer: No Cardiac Disorders: No CVA: No COPD: No CHF: No Dementia: No Diabetes: No GI Disorders: No Disorders: No HTN: No Hypercholesterolemia: No Liver Disease: No Seizures: No Thyroid Disease: No - Surgical History Abdominal Surgery: Yes - Reproductive History (#): 3 Para: 1 Cervical CA: No Dysfunctional Uterine Bleeding: No Ectopic : No Endometrial CA: No Polycystic Ovaries: No Therapeutic (s) & number: No Tubal Ligation: No Spontaneous : 1 - Immunization History Immunization Up to Date: Yes - Suicide/Smoking/Psychosocial Hx Smoking Status: No Smoking History: Never smoked Have you smoked in the past 12 months: No Number of Cigarettes Smoked Daily: 0 Hx Alcohol Use: No Drug/Substance Use Hx: No Substance Use Type: None Hx Substance Use Treatment: No <Tariq Bender - Last Filed: 11/10/18 23:53> - Past Medical History Allergies/Adverse Reactions: Allergies Allergy/AdvReac Type Severity Reaction Status Date / Time No Known Drug Allergies Allergy Verified 11/10/18 20:31 Home Medications: Ambulatory Orders Ferrous Sulfate 325 mg PO TID 10/10/17 Pnv,Calcium 72/Iron/Folic Acid [ Plus Tablet] 1 each PO TID 10/17/17 Oxycodone HCl/Acetaminophen [Percocet 5-325 mg Tablet -] 1 - 2 tab PO Q6H #10 tab MDD 4 10/21/17 Review of Systems - Review of Systems Comments:: 11/10/18 21:21 GENERAL/CONSTITUTIONAL: No fever or chills. No weakness. HEAD, EYES, EARS, NOSE AND THROAT: No change in vision. No ear pain or discharge. No sore throat. CARDIOVASCULAR: No chest pain or shortness of breath RESPIRATORY: No cough, wheezing, or hemoptysis. GASTROINTESTINAL: + left flank pain, and abdominal pain. No nausea, vomiting, diarrhea . GENITOURINARY: No dysuria, frequency, or change in urination. MUSCULOSKELETAL: No joint or muscle swelling or pain. No neck or back pain. SKIN: No rash NEUROLOGIC: No headache, vertigo, loss of consciousness, or change in strength/ sensation. ENDOCRINE: No increased thirst. No abnormal weight change HEMATOLOGIC/LYMPHATIC: No anemia, easy bleeding, or history of blood clots. ALLERGIC/IMMUNOLOGIC: No hives or skin allergy. <Tariq Bender - Last Filed: 11/10/18 23:53> *Physical Exam - Vital Signs Last Vital Signs Temp Pulse Resp BP Pulse Ox 100.5 F H 122 H 18 141/94 100 11/10/18 20:31 11/10/18 20:31 11/10/18 20:31 11/10/18 20:31 11/10/18 20:31 <Carolyn Serrano - Last Filed: 11/10/18 23:28> - Vital Signs Last Vital Signs Temp Pulse Resp BP Pulse Ox 100.5 F H 122 H 18 141/94 100 11/10/18 20:31 11/10/18 20:31 11/10/18 20:31 11/10/18 20:31 11/10/18 20:31 - Physical Exam Comments: 11/10/18 21:21 GENERAL: Awake, alert, and fully oriented, in no acute distress HEAD: No signs of trauma, normocephalic, atraumatic EYES: PERRLA, EOMI, sclera anicteric, conjunctiva clear ENT: Hearing grossly normal, nares patent, oropharynx clear without exudates. Moist mucosa NECK: Normal ROM, supple, no lymphadenopathy, JVD, or masses LUNGS: No distress, speaks full sentences, clear to auscultation bilaterally HEART: Regular rate and rhythm, normal S1 and S2, no murmurs, rubs or gallops, peripheral pulses normal and equal bilaterally. ABDOMEN: + left flank and LLQ abdominal ttp. Soft, nontender, normoactive bowel sounds. No guarding, no rebound. No masses EXTREMITIES : Normal inspection, Normal range of motion, no edema. No clubbing or cyanosis. SKIN: Warm, Dry, normal turgor, no rashes or lesions noted <Tariq Bender - Last Filed: 11/10/18 23:53> Moderate Sedation - Procedure Monitoring Vital Signs: Procedure Monitoring Vital Signs Temperature 100.5 F H 11/10/18 20:31 Pulse Rate 122 H 11/10/18 20:31 Respiratory Rate 18 11/10/18 20:31 Blood Pressure 141/94 11/10/18 20:31 O2 Sat by Pulse Oximetry (%) 100 11/10/18 20:31 <Carolyn Serrano - Last Filed: 11/10/18 23:28> - Procedure Monitoring Vital Signs: Procedure Monitoring Vital Signs Temperature 100.5 F H 11/10/18 20:31 Pulse Rate 122 H 11/10/18 20:31 Respiratory Rate 18 11/10/18 20:31 Blood Pressure 141/94 11/10/18 20:31 O2 Sat by Pulse Oximetry (%) 100 11/10/18 20:31 <Tariq Bender - Last Filed: 11/10/18 23:53> ED Treatment Course - LABORATORY CBC & Chemistry Diagram: 11/10/18 20:40 11/10/18 20:40 - ADDITIONAL ORDERS Additional order review: Laboratory Results 11/10/18 11/10/18 11/10/18 20:56 20:40 20:40 PT with INR 12.60 INR 1.07 PTT (Actin FS) 30.4 Sodium 138 Potassium 4.0 Chloride 104 Carbon Dioxide 26 Anion Gap 8 BUN 11 Creatinine 0.6 Creat Clearance w eGFR > 60 Random Glucose 94 Calcium 8.7 Total Bilirubin 0.2 AST 15 ALT 14 Alkaline Phosphatase 63 Total Protein 7.9 Albumin 4.1 Urine Color Colorless Urine Appearance Clear Urine pH 6.0 Ur Specific [place] 1.004 L Urine Protein Negative Urine Glucose (UA) Negative Urine Ketones Negative Urine Blood Negative Urine Nitrite Negative Urine Bilirubin Negative Urine Urobilinogen Negative Ur Leukocyte Esterase Negative Urine HCG, Qual Negative 11/10/18 20:40 RBC 4.28 MCV 78.2 L MCHC 33.6 RDW 14.2 MPV 7.7 Neutrophils % 70.2 Lymphocytes % 21.4 Monocytes % 7.3 Eosinophils % 0.6 Basophils % 0.5 <Carolyn Serrano - Last Filed: 11/10/18 23:28> - LABORATORY CBC & Chemistry Diagram: 11/10/18 20:40 11/10/18 20:40 - ADDITIONAL ORDERS Additional order review: Laboratory Results 11/10/18 20:56 Urine HCG, Qual Negative 11/10/18 20:40 RBC 4.28 MCV 78.2 L MCHC 33.6 RDW 14.2 MPV 7.7 Neutrophils % 70.2 Lymphocytes % 21.4 Monocytes % 7.3 Eosinophils % 0.6 Basophils % 0.5 <Tariq Bender - Last Filed: 11/10/18 23:53> Medical Decision Making - Medical Decision Making 11/10/18 21:47 28 yo F with h/o , tubal ligation, hernia repair, who p/w left lower abdominal pain, and left flank pain x 1 week. PO temp 100.5, HR 122, vitals otherwise wnl, A&Ox3. + Left flank ttp, and LLQ abdominal ttp. Denies nausea/ vomiting, Will consider MSK related posterior chest wall pain, PNA, URI, cystitis vs. pyelonephritis, diverticulitis, nephrolithiasis, colitis, ovarian pathology/torsion, PID. Low suspicion mesenteric ischemia, AAA, Ao dissection. Ed Course: CBC,CMP,UA,UCX,BHCG NS 20 cc/kg, Tylenol 1000 mg, Toradol CXR 11/10/18 22:09 WBC: 10.8 CMP: Unremarkable UA: Neg HCG: Neg 11/10/18 23:52 CXR: Unremarkable Patient vitals stable, and pain improved. Stable for d/c with return precautions. Advised to f/u with PMD. <Tariq Bender - Last Filed: 11/10/18 23:53> *DC/Admit/Observation/Transfer <Carolyn Serrano - Last Filed: 11/10/18 23:28> - Discharge Dispostion Decision to Admit order: No - Attestations Physician Attestion: 11/10/18 21:23 I attest to the information provided in this note. <Tariq Bender - Last Filed: 11/10/18 23:53> Diagnosis at time of Disposition: Cough Fever Qualifiers: Fever type: unspecified Qualified Code(s): R50.9 - Fever, unspecified Back pain Qualifiers: Back pain location: low back pain Chronicity: acute Back pain laterality: left Sciatica presence: without sciatica Qualified Code(s): M54.5 - Low back pain - Discharge Dispostion Disposition: HOME Condition at time of disposition: Stable - Referrals Referrals: Rufino Guardado MD [Primary Care Provider] - - Patient Instructions Printed Discharge Instructions: DI for Low Back Pain, DI for Cough -- Adult, DI for Fever (Symptom) -- Adult Additional Instructions: Please return to the emergency department with any new or worsening symptoms or concerns. Please follow up with your primary care physician within 72 hours. Take tyelnol or motrin for fever and body aches rest drink plenty of fluids followup with your doctor - Post Discharge Activity
[2018-11-10 21:28] LABS: ACTIVATED PTT 30.4 SECONDS (25.2-36.5)
[2018-11-10] MEDS ORDERED: SODIUM CHLORIDE 1,497 ML IV ONE (21:50)
[2018-11-10] MEDS ORDERED: ACETAMINOPHEN 1000 MG/100 ML VIAL (NON FORMULARY) IVPB ONE (21:51)
[2018-11-10 21:53] LABS: ALBUMIN 4.1 g/dl (3.4-5.0); ALK PHOS 63 U/L (45-117); ANION GAP 8 MMOL/L (8-16); BILIRUBIN,TOTAL 0.2 mg/dL (0.2-1); BLOOD UREA NITROGEN 11 mg/dL (7-18); CALCIUM 8.7 mg/dL (8.5-10.1); CHLORIDE 104 mmol/L (98-107); CO2 26 mmol/L (21-32); CREATININE 0.6 mg/dL (0.55-1.3); GLUCOSE,RANDOM 94 mg/dL (74-106); SGOT/AST 15 U/L (15-37); SGPT/ALT 14 U/L (13-61); SODIUM 138 mmol/L (136-145); TOT PROT 7.9 g/dl (6.4-8.2)
[2018-11-10] MEDS ORDERED: KETOROLAC TROMETHAMINE 15 MG/ML VIAL IVPUSH ONE (22:11)
--- NOTE | 2018-11-10 22:52 | PDOC ---
Attending Attestation - HPI HPI: This patient is a 28 year old female with PMHx, of , hernia repair, Pneumonia in August 2018, who presents with left lower abdominal pain and left flank pain for about 1 week. Patient describes her abdominal pain as crampy at rest, worse with palpation.Patient also reports some nausea but denies vomit, and also endorses fever 100.5 (taken today in triage) and cough. Patient notes 2 days of pain upon end of urination.Patient works at [employer] and went to urgent care prior to coming to the ER, they referred her to the ER for elevated white count and r/o diverticulitis. She denies any nausea, vomiting, diarrhea, blood in stools. 11/10/18 22:54 - Physicial Exam PE: GENERAL: Febrile. Well-appearing, well-nourished. No apparent distress. HEENT: Normocephalic, atraumatic. PERRL, EOM intact. CARDIOVASCULAR: Normal S1, S2. Tachycardic. Regular rhythm. PULMONARY: Clear to auscultation bilaterally. ABDOMEN: Soft, non-distended, non-tender. Ventral hernia reducible. Left flank pain on palpation. EXTREMITIES: Normal ROM in all four extremities. No gross deformities. SKIN: Warm, dry. No rash NEUROLOGICAL: No focal neurological deficits. - Medical Decision Making As per patient, flu test negative today at Urgent Care. 11/10/18 22:55 <Alisson Jones - Last Filed: 11/10/18 22:56> - Resident Resident Name: Tariq Bender - ED Attending Attestation I have performed the following: I have examined & evaluated the patient, The case was reviewed & discussed with the resident, I agree w/resident's findings & plan, Exceptions are as noted - Medical Decision Making 11/10/18 23:07 28-year-old female presents with 6 days of fever, cough, back pain. She was seen in urgent care today and had a flu swab done that she was informed was negative. Urgent care center here to rule out diverticulitis. However, the patient has no diarrhea, she has no left anterior abdominal pain She had CBC and chemistries done She says she had a chest x-ray done 2 weeks ago at [facility] where she says that was negative. 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 She has sick contacts at home. CBC done at urgent care today and is very slightly elevated at 10.9 Chemistries are essentially unremarkable. She has a negative test Urinalysis is negative. She has benign abdominal exam. cxr napd Impression upper respiratory infection, cough, fever 11/11/18 17:31 <Carolyn Serrano - Last Filed: 11/11/18 17:32>
[2018-11-10] MEDS ORDERED: ACETAMINOPHEN INJECTION 100 ML IVPB ONE (23:20)
[2018-11-10] MEDS ORDERED: KETOROLAC TROMETHAMINE 15 MG/ML VIAL ONE (23:20)
[2018-11-10] MEDS ORDERED: IBUPROFEN 600 MG TABLET (FP) PO ONE ×2 (23:26→23:28)
== END 2018-11-10 23:40 | disposition home or self-care (01) ==
LOC: JER 20:27
DX: R50.9 Fever, unspecified (principal); R05 Cough; M54.5 Low back pain
CPT/HCPCS: 36415; 71046-TC-FY; 80053; 81003; 84703; 85025; 85610; 85730; 87086; 87186; 99284-25

== ENCOUNTER 2019-07-15 12:24 | Emergency (ER) | payer OTHER ==
[2019-07-15 12:30] VITALS: BP 120/78; PULSE 97; TEMP 98.2; BMI 20.9
[2019-07-15] MEDS ORDERED: IBUPROFEN 600 MG TABLET (FP) PO ONE ×2 (13:27→13:38)
--- NOTE | 2019-07-15 14:08 | PDOC ---
History of Present Illness - General Chief Complaint: Injury Stated Complaint: LT HAND INJURY Time Seen by Provider: 07/15/19 13:21 - History of Present Illness Initial Comments: 07/15/19 13:58 CHIEF COMPLAINT: hand injury HISTORY OF PRESENT ILLNESS: 29 yo F with no significant PMH presents to fast track with left hand pain s/p injury. Patient states she was at a pharmacy picking up a medication for her daughter when a door closed on her hand. She reports pain with movement to her left thumb but denies pain to any other part of her hand. No recent travel or sick contacts. PAST MEDICAL HISTORY: Denies past medical history FAMILY HISTORY: Denies SOCIAL HISTORY: Denies tobacco, alcohol, illicit drug use. SURGICAL HISTORY: Denies ALLERGIES: No known drug allergies REVIEW OF SYSTEMS General/Constitutional: Denies fever or chills. Denies weakness, weight change. HEENT: Denies change in vision. Denies ear pain or discharge. Denies sore throat. Cardiovascular: Denies chest pain or shortness of breath. Respiratory: Denies cough, wheezing, or hemoptysis. Gastrointestinal: Denies nausea, vomiting, diarrhea or constipation. Denies rectal bleeding. Genitourinary: Denies dysuria, frequency, or change in urination. Musculoskeletal: Pain to left thumb, worse with movement. Skin and breasts: Denies rash or easy bruising. Neurologic: Denies headache, vertigo, loss of consciousness, or loss of sensation. PHYSICAL EXAM General Appearance: Well-appearing, appropriately dressed. No apparent distress , no intoxication. HEENT: EOMI, PERRLA, normal ENT inspection, normal voice, TMs normal, pharynx normal. No conjunctival pallor. No photophobia, scleral icterus. Neck: Supple. Trachea midline. No tenderness, rigidity, carotid bruit, stridor , lymphadenopathy, or thyromegaly. Respiratory/Chest: Lungs CTAB. No shortness of breath, chest tenderness, respiratory distress, accessory muscle use. No crackles, rales, rhonchi, stridor , wheezing, dullness Cardiovascular: RRR. S1, S2. No JVD, murmur, bradycardia, tachycardia. Vascular Pulses: Dorsalis-Pedis (R): 2+, Dorsalis-Pedis (L): 2+ Gastrointestinal/Abdominal: Normal bowel sounds. Abdomen soft, non-distended. No tenderness or rebound tenderness. No organomegaly, pulsatile mass, guarding , hernia, hepatomegaly, splenomegaly. Lymphatic: No adenopathy, tenderness. Musculoskeletal/Extremities: Developing ecchymosis and tenderness to left thumb and radial aspect of wrist. No deformity. Normal inspection. FROM of all extremities, normal capillary refill. Pelvis Stable. No CVA tenderness. No tenderness to extremities, pedal edema, swelling, erythema or deformity. Integumentary: Appropriate color, dry, warm. No cyanosis, erythema, jaundice or rash Neurologic: flat drier II-XII intact. Fully oriented, alert. Appropriate mood/affect. Motor strength 5/5. No appreciable EOM palsy, facial droop or sensory deficit. Past History - Past Medical History Allergies/Adverse Reactions: Allergies Allergy/AdvReac Type Severity Reaction Status Date / Time No Known Drug Allergies Allergy Verified 07/15/19 12:26 Home Medications: Ambulatory Orders Ferrous Sulfate 325 mg PO TID 10/10/17 Pnv,Calcium 72/Iron/Folic Acid [ Plus Tablet] 1 each PO TID 10/17/17 Oxycodone HCl/Acetaminophen [Percocet 5-325 mg Tablet -] 1 - 2 tab PO Q6H #10 tab MDD 4 10/21/17 Ibuprofen 600 mg PO QID #30 tablet 07/15/19 Anemia: No Asthma: No Cancer: No Cardiac Disorders: No CVA: No COPD: No CHF: No Dementia: No Diabetes: No GI Disorders: No Disorders: No HTN: No Hypercholesterolemia: No Liver Disease: No Seizures: No Thyroid Disease: No - Surgical History Abdominal Surgery: Yes - Reproductive History (#): 3 Para: 1 Cervical CA: No Dysfunctional Uterine Bleeding: No Ectopic : No Endometrial CA: No Polycystic Ovaries: No Therapeutic (s) & number: No Tubal Ligation: No Spontaneous : 1 - Immunization History Immunization Up to Date: Yes - Suicide/Smoking/Psychosocial Hx Smoking Status: No Smoking History: Never smoked Have you smoked in the past 12 months: No Number of Cigarettes Smoked Daily: 0 Hx Alcohol Use: No Drug/Substance Use Hx: No Substance Use Type: None Hx Substance Use Treatment: No *Physical Exam - Vital Signs Last Vital Signs Temp Pulse Resp BP Pulse Ox 98.2 F 97 H 16 120/78 100 07/15/19 12:27 07/15/19 12:27 07/15/19 12:27 07/15/19 12:27 07/15/19 12:27 ED Treatment Course - RADIOLOGY Radiology Studies Ordered: Category Date Time Status HAND- LEFT [RAD] Stat Radiology 07/15/19 13:21 Taken - Medications Given in the ED: ED Medications Discontinued Medications Generic Name Dose Route Start Last Admin Trade Name Nevaeh PRN Reason Stop Dose Admin Ibuprofen 600 mg 07/15/19 13:27 07/15/19 13:39 Motrin - PO 07/15/19 13:28 600 mg ONCE ONE Administration Medical Decision Making - Medical Decision Making 07/15/19 14:01 29 yo F with no significant PMH presents to fast track with left hand pain s/p injury. hand x-ray ibuprofen x-ray negative for fracture or dislocation NSAIDS. Advised patient to take medication and to f/u with ortho if sypmtoms persist. Patient verbalized understanding and agrees to plan. *DC/Admit/Observation/Transfer Diagnosis at time of Disposition: Thumb injury Qualifiers: Encounter type: initial encounter Laterality: left Qualified Code(s): S69.92XA - Unspecified injury of left wrist, hand and finger(s), initial encounter - Discharge Dispostion Disposition: HOME Condition at time of disposition: Stable Decision to Admit order: No - Prescriptions Prescriptions: Ibuprofen 600 mg PO QID #30 tablet - Referrals Referrals: Rufino Guardado MD [Primary Care Provider] - Isrreal Cruz MD [Staff Physician] - - Patient Instructions Printed Discharge Instructions: DI for Finger Sprain Additional Instructions: Please take medications as prescribed and follow RICE instructions as provided. If symptoms persist past 7-10 days, please follow up with orthopedics. If you develop any new or worsening symptoms, please return to the ER. - Post Discharge Activity Forms/Work/School Notes: Back to Work
== END 2019-07-15 14:26 | disposition home or self-care (01) ==
LOC: JERFT 12:24
DX: S69.92XA Unspecified injury of left wrist, hand and finger(s), initial encounter (principal); W23.1XXA Caught, crushed, jammed, or pinched between stationary objects, initial encounter; Y93.89 Activity, other specified; Y92.481 Parking lot as the place of occurrence of the external cause
CPT/HCPCS: 73130-TC-LT-FY; 99282-25

== ENCOUNTER 2019-12-08 19:16 | Emergency (ER) | payer OTHER ==
[2019-12-08] MEDS ORDERED: KETOROLAC TROMETHAMINE 30 MG/1 ML VIAL IVPUSH ONE (19:27)
[2019-12-08] MEDS ORDERED: ONDANSETRON 4 MG/2 ML VIAL IVPUSH ONE (19:27)
[2019-12-08] MEDS ORDERED: SODIUM CHLORIDE 1,000 ML IV STA (19:27)
[2019-12-08 19:29] VITALS: TEMP 99.2
--- NOTE | 2019-12-08 19:30 | PDOC ---
Rapid Medical Evaluation Time Seen by Provider: 12/08/19 19:26 Medical Evaluation: Allergies Allergy/AdvReac Type Severity Reaction Status Date / Time No Known Drug Allergies Allergy Verified 07/15/19 12:26 12/08/19 19:28 Pt c/o:gen abd cramping , + vomiting, soft bm, other family members with the same Pt on brief exam: epigastric tenderness, tachy pt ordered for: labs, urine, ivf, zofran, and toradol Pt to proceed to the ED Discharge Disposition - Diagnosis Gastroenteritis Abdominal pain Qualifiers: Abdominal location: generalized Qualified Code(s): R10.84 - Generalized abdominal pain - Discharge Dispostion Disposition: HOME - Referrals Referrals: Rufino Guardado MD [Primary Care Provider] - - Patient Instructions Printed Discharge Instructions: DI for Viral Gastroenteritis -- Adult Additional Instructions: Drink plenty of fluids start a BRAT ( bananas, rice apples toast) follow up with your doctor return to the ER if symptoms worsen - Post Discharge Activity Work/School Note: Back to Work
[2019-12-08 21:58] LABS: BASO % 0.3 % (0-2.0); EOS % 0.5 % (0-4.5); HEMATOCRIT 38.9 % (32.4-45.2); HEMOGLOBIN 12.5 GM/dL (10.7-15.3); LYMPH % 6.2 % (8-40); MCH 25.8 pg (25.7-33.7); MCHC 32.1 g/dl (32.0-36.0); MEAN CELL VOLUME 80.5 fl (80-96); MONO % 3.9 % (3.8-10.2); NEUT % 89.1 % (42.8-82.8); PLATELET COUNT 302 K/MM3 (134-434); RBC 4.83 M/mm3 (3.60-5.2); RDW 14.2 % (11.6-15.6); WHITE BLOOD COUNT 11.3 K/mm3 (4.0-10.0)
[2019-12-08 22:04] LABS: EPI CELLS 16.2 /HPF (0-5/HPF); HYALINE CASTS 8 /lpf (0-8); URINE APPEARANCE CLOUDY; URINE BACTERIA 145.4 /hpf (NEGATIVE); URINE BILIRUBIN NEGATIVE (NEGATIVE); URINE COLOR YELLOW; URINE GLUCOSE (UA) NEGATIVE (NEGATIVE); URINE KETONE 2+ (NEGATIVE); URINE LEUK ESTERASE TRACE (NEGATIVE); URINE NITRITE NEGATIVE (NEGATIVE); URINE PROTEIN NEGATIVE (NEGATIVE); URINE RBC 2 /hpf (0-4); URINE WBC 11 /hpf (0-5)
[2019-12-08 22:31] LABS: ALBUMIN 4.2 g/dl (3.4-5.0); BILIRUBIN,TOTAL 0.5 mg/dL (0.2-1); BLOOD UREA NITROGEN 14.1 mg/dL (7-18); CALCIUM 8.7 mg/dL (8.5-10.1); CREATININE 0.8 mg/dL (0.55-1.3); POTASSIUM 3.8 mmol/L (3.5-5.1); TOT PROT 8.2 g/dl (6.4-8.2)
[2019-12-09] MEDS ORDERED: KETOROLAC TROMETHAMINE 30 MG/1 ML VIAL ONE (01:27)
[2019-12-09] MEDS ORDERED: ONDANSETRON 4 MG/2 ML VIAL ONE (01:27)
--- NOTE | 2019-12-09 02:05 | PDOC ---
History of Present Illness - General Chief Complaint: Pain Stated Complaint: ABD PAIN Time Seen by Provider: 12/08/19 19:26 History Source: Patient - History of Present Illness Initial Comments: 12/09/19 02:03 29-year-old female here with [id number] who is with similar symptoms complaining of nausea and diarrhea for the last 2 days. Patient reports that her daughter had similar symptoms and is well now. Patient reports generalized abdominal pain denies fever/chills. No past medical history Past History - Past Medical History Allergies/Adverse Reactions: Allergies Allergy/AdvReac Type Severity Reaction Status Date / Time No Known Drug Allergies Allergy Verified 12/08/19 19:29 Home Medications: Ambulatory Orders Ferrous Sulfate 325 mg PO TID 10/10/17 Pnv,Calcium 72/Iron/Folic Acid [ Plus Tablet] 1 each PO TID 10/17/17 Oxycodone HCl/Acetaminophen [Percocet 5-325 mg Tablet -] 1 - 2 tab PO Q6H #10 tab MDD 4 10/21/17 Ibuprofen 600 mg PO QID #30 tablet 07/15/19 Anemia: No Asthma: No Cancer: No Cardiac Disorders: No CVA: No COPD: No CHF: No Dementia: No Diabetes: No GI Disorders: No Disorders: No HTN: No Hypercholesterolemia: No Liver Disease: No Seizures: No Thyroid Disease: No - Surgical History Abdominal Surgery: Yes - Reproductive History (#): 3 Para: 1 Cervical CA: No Dysfunctional Uterine Bleeding: No Ectopic : No Endometrial CA: No Polycystic Ovaries: No Therapeutic (s) & number: No Tubal Ligation: No Spontaneous : 1 - Immunization History Immunization Up to Date: Yes - Psycho Social/Smoking Cessation Hx Smoking Status: No Smoking History: Never smoked Have you smoked in the past 12 months: No Number of Cigarettes Smoked Daily: 0 Hx Alcohol Use: No Drug/Substance Use Hx: No Substance Use Type: None Hx Substance Use Treatment: No Abd/GI Specific PMHX - Complaint Specific PMHX Colitis: No Diverticulitis: No Review of Systems - Review of Systems Able to Perform ROS?: Yes Is the patient limited [place] proficient: No Constitutional: No: Symptoms Reported, See HPI, Chills, Diaphoresis, Fever, Loss of Appetite, Malaise, Night Sweats, Weakness, Weight Stable, Unintentional Wgt. Loss, Unexplained wgt Loss, Other ABD/GI: Yes: Diarrhea, Nausea, Abdominal cramping *Physical Exam - Vital Signs Last Vital Signs Temp Pulse Resp BP Pulse Ox 99.2 F 130 H 20 136/88 100 12/08/19 19:26 12/08/19 19:26 12/08/19 19:26 12/08/19 19:26 12/08/19 19:26 - Physical Exam General Appearance: Yes: Appropriately Dressed Respiratory/Chest: positive: Lungs Clear, Normal Breath Sounds Gastrointestinal/Abdominal: positive: Normal Bowel Sounds, Tender (genarlized), Soft Extremity: positive: Normal Capillary Refill, Normal Inspection, Normal Range of Motion Integumentary: positive: Normal Color, Dry, Warm ED Treatment Course - LABORATORY CBC & Chemistry Diagram: 12/08/19 21:33 12/08/19 21:33 - ADDITIONAL ORDERS Additional order review: Laboratory Results 12/08/19 12/08/19 12/08/19 21:33 21:30 21:30 Sodium 136 Potassium 3.8 Chloride 105 Carbon Dioxide 24 Anion Gap 8 BUN 14.1 Creatinine 0.8 Est GFR (CKD-EPI)AfAm 113.86 Est GFR (CKD-EPI)NonAf 98.24 Random Glucose 108 H Calcium 8.7 Total Bilirubin 0.5 AST 16 ALT 16 Alkaline Phosphatase 46 Total Protein 8.2 Albumin 4.2 Lipase 90 Urine Color Yellow Urine Appearance Cloudy Urine pH 6.0 Ur Specific [place] 1.024 Urine Protein Negative Urine Glucose (UA) Negative Urine Ketones 2+ H Urine Blood Negative Urine Nitrite Negative Urine Bilirubin Negative Urine Urobilinogen 1.0 Ur Leukocyte Esterase Trace Urine WBC (Auto) 11 Urine RBC (Auto) 2 Urine Casts (Auto) 8 U Epithel Cells (Auto) 16.2 Urine Bacteria (Auto) 145.4 Urine HCG, Qual Negative 12/08/19 21:33 RBC 4.83 MCV 80.5 MCHC 32.1 RDW 14.2 MPV 8.0 Neutrophils % 89.1 H D Lymphocytes % 6.2 L D Monocytes % 3.9 Eosinophils % 0.5 Basophils % 0.3 - Medications Given in the ED: ED Medications Discontinued Medications Generic Name Dose Route Start Last Admin Trade Name Freq PRN Reason Stop Dose Admin Sodium Chloride 1,000 mls @ 1,000 mls/hr 12/08/19 19:27 12/09/19 01:33 Normal Saline - IV 12/08/19 20:26 1,000 mls/hr ASDIR STA Administration Ketorolac Tromethamine 30 mg 12/08/19 19:27 12/09/19 01:33 Toradol Injection - IVPUSH 12/08/19 19:28 30 mg ONCE ONE Administration Ondansetron HCl 4 mg 12/08/19 19:27 12/09/19 01:33 Zofran Injection IVPUSH 12/08/19 19:28 4 mg ONCE ONE Administration ED Progress Note - Progress Note Progress Note: 12/09/19 05:50 gastroenteritis P: cbc cmp ivf zofran reevaluation Medical Decision Making - Medical Decision Making 12/09/19 05:51 patient reports that she is feeling well. will d./ chome Discharge - Discharge Information Problems reviewed: Yes Clinical Impression/Diagnosis: Gastroenteritis Abdominal pain Qualifiers: Abdominal location: generalized Qualified Code(s): R10.84 - Generalized abdominal pain Disposition: HOME - Follow up/Referral Referrals: Rufino Guardado MD [Primary Care Provider] - - Patient Discharge Instructions Patient Printed Discharge Instructions: DI for Viral Gastroenteritis -- Adult Additional Instructions: Drink plenty of fluids start a BRAT ( bananas, rice apples toast) follow up with your doctor return to the ER if symptoms worsen - Post Discharge Activity Work/Back to School Note: Back to Work
[2019-12-09 03:08] VITALS: BP 95/61; PULSE 106
== END 2019-12-09 03:29 | disposition home or self-care (01) ==
LOC: JER 19:16
PROC: 3E033NZ Introduction of Analgesics, Hypnotics, Sedatives into Peripheral Vein, Percutaneous Approach (ICD-10-PCS; principal; 2019-12-08)
PROC: 3E033GC Introduction of Other Therapeutic Substance into Peripheral Vein, Percutaneous Approach (ICD-10-PCS; 2019-12-08)
DX: K52.9 Noninfective gastroenteritis and colitis, unspecified (principal)
CPT/HCPCS: 36415; 80053; 81003; 83690; 84703; 85025; 96374; 96375; 99283-25; J7030